=== PATIENT | female | born 1940 ===

== ENCOUNTER 2018-04-16 10:08 | Outpatient (CLI) | payer OTHER ==
[~2018-04-16] VITALS: Ht 162.6 cm; Wt 81.6 kg
== END 2018-04-16 10:20 | disposition home or self-care (01) ==
LOC: OFIC 805 10:08
DX: H61.23 Impacted cerumen, bilateral (principal); H90.3 Sensorineural hearing loss, bilateral

== ENCOUNTER → 2020-10-16 | Outpatient (CLI) | payer OTHER | END | disposition home or self-care (01) | LOC: OFIC 805 10:59 | PROVIDERS: ATTEND Otolaryngology | DX: J31.0 Chronic rhinitis (principal); H90.3 Sensorineural hearing loss, bilateral; H61.23 Impacted cerumen, bilateral ==